=== PATIENT | female | born 1960 | race Caucasian/White ===

== ENCOUNTER → 2016-06-09 | Outpatient (CLI) | payer BC | LOC: MW.MRI 09:13 | PROVIDERS: ATTEND Orthopaedic Surgery | DX: M25.561 Pain in right knee (principal) | CPT/HCPCS: 73721-RT ==

== ENCOUNTER 2016-08-25 07:48 | Inpatient (IN) | payer BC ==
[~2016-08-25 07:48] MED LIST: Acetaminophen 1,000 MG in Premix Bag 1 BAG IV SCH; Famotidine 20 MG/2 ML SDV IVPUSH SCH; Ketorolac 30 MG/ML SDV IVPUSH SCH; Scopolamine 1.5 MG Transdermal Patch TRDERM SCH; oxyCODONE ER 20 MG TAB.ER PO SCH
[2016-08-25] MEDS ORDERED: Tranexamic Acid 4,000 MG in Sodium Chloride 0.9% 100 ML IV SCH (08:00)
[2016-08-25] MEDS ORDERED: Ropivacaine 49.25 ML, Ketorolac 30 MG, EPINEPHrine 0.5 MG, cloNIDine 80 MCG in Sodium C... INJECT SCH (08:00)
[2016-08-25] MEDS ORDERED: Clindamycin Phosphate in D5W 900 MG in Premix Bag 1 BAG IV SCH ×2 (08:00)
[2016-08-25] MEDS: Lactated Ringers 1,000 ML IV SCH (08:56)
[2016-08-25] MEDS ORDERED: Lidocaine 2% 5 ML SDV ONE (09:48)
[2016-08-25] MEDS ORDERED: Propofol 200 MG/20 ML SDV ONE ×3 (09:49→11:05)
[2016-08-25] MEDS ORDERED: fentaNYL 100 MCG/2 ML SDV ONE (09:49)
[2016-08-25] MEDS ORDERED: ePHEDrine 50 MG/ML SDV ONE (09:49)
[2016-08-25] MEDS ORDERED: Ondansetron 4 MG/2 ML SDV ONE (09:49)
[2016-08-25] MEDS ORDERED: Midazolam 1 MG/ML 2 ML SDV ONE (09:49)
--- NOTE | 2016-08-25 10:03 | PCM.PREANE ---
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 Off Xarelto since Thursday. - Review of Systems General: No Symptoms Pulmonary: No Symptoms, Other (sleep apnea (CPAP)) Gastrointestinal: Other (S/p bariatric surgery) Neurological: No Symptoms Other: Reports: Thyroid Problems (hypothyroid - treated) - Physical Assessment NPO Status Date: 08/24/16 NPO Status Time: 23:00 O2 Sat by Pulse Oximetry: 93 Respiratory Rate: 16 Vital Signs: Last Vital Signs Temp 99.1 F 08/25/16 08:15 Pulse 80 08/25/16 08:15 Resp 16 08/25/16 08:15 BP 140/75 08/25/16 08:15 Pulse Ox 93 L 08/25/16 08:15 Height: 5 ft 7 in Weight: 250 lb ASA Class: 3 Mental Status: Alert & Oriented x3 Airway Class: Mallampati = 3 Dentition: Reports: Normal Dentition Thyro-Mental Finger Breadths: 3 (prominent thyroid cartilage) Mouth Opening Finger Breadths: 3 ROM/Head Extension: Full Lungs: Clear to auscultation, Normal respiratory effort Cardiovascular: Regular Rate, Regular Rhythm, No Murmurs - Lab Values: Laboratory Last Values Blood Type A POSITIVE 08/25/16 08:28 Antibody Screen NEGATIVE 08/25/16 08:28 - Allergies Allergies/Adverse Reactions: Allergies Allergy/AdvReac Type Severity Reaction Status Date / Time cephalexin monohydrate Allergy Hives Verified 08/14/16 10:52 [From Keflex] strawberry Allergy Hives Verified 08/14/16 10:52 Sulfa (Sulfonamide Allergy Hives Verified 08/14/16 10:52 Antibiotics) - Blood Blood Available: Yes Product(s) Available: PRBC (T and S) - Anesthesia Plan Free Text/Narrative:: Risk due to potential blood clotting (protein S deficiency). - Acknowledgements Anesthesia Type Planned: Spinal (perhaps general depending on airway) Pt an Appropriate Candidate for the Planned Anesthesia: Yes Alternatives and Risks of Anesthesia Discussed w Pt/Guardian: Yes Pt/Guardian Understands and Agrees with Anesthesia Plan: Yes PreAnesthesia Questionnaire Other HEENT History: wears glasses Cardiovascular History: Reports: Blood Clots/VTE/DVT Other Cardiovascular History: Protein S deficiency, has had DVTx3 Respiratory History: Reports: Sleep Apnea Other Respiratory History: had sleep apnea and used CPAP before gastric bypass, not currently needed Gastrointestinal History: Reports: None Genitourinary History: Reports: None [employer] History: Reports: None Musculoskeletal History: Reports: Arthritis Neurological History: Reports: None Psychiatric History: Reports: None Other Psychiatric History: claustrophobic Endocrine/Metabolic History: Reports: Hypothyroidism, Obesity/BMI 30+ Hematologic History: Reports: Anticoagulation Therapy, Other (See Below) Other Hematologic History: Protein S deficiency Immunologic History: Reports: None Oncologic (Cancer) History: Reports: None Dermatologic History: Reports: None Other Dermatologic History: occasional groin rash - Past Surgical History GI Surgical History: Reports: Bariatric Procedure, Cholecystectomy, Hernia, Abdominal, Other (See Below) Dermatological Surgical History: Reports: Plastic Surgical Reconstruction/Repair - SUBSTANCE USE Smoking Status *Q: Never Smoker Second Hand Smoke Exposure: No Recreational Drug Use History: No - HOME MEDS Home Medications: Home Meds Levothyroxine 125 mcg PO ACBREAKFAST 02/19/15 [History] Clobetasol [Clobetasol 0.05%] 1 applic TOP ASDIRECTED PRN 08/09/15 [History] Iron 28 mg PO DAILY 08/09/15 [History] Multivitamin [Daily Vika] 1 tab PO DAILY 08/09/15 [History] Rivaroxaban [Xarelto] 20 mg PO DAILY 08/09/15 [History] Vit B12/Fa/Pyridoxine HCl/AA15 [Glycotrol] 500 mg PO DAILY 08/09/15 [History] traMADol HCl [Ultram] 1 tab PO BID PRN 08/09/15 [History] LORazepam 1 mg PO BEDTIME 08/14/16 [History] - CURRENT (IN HOUSE) MEDS Current Meds: Current Medications Famotidine (Pepcid) 40 mg IVPUSH ONARRIVE [facility]BARA Last Admin: 08/25/16 09:01 Dose: 40 mg Acetaminophen 1,000 mg/ Premix 100 mls @ 400 mls/hr IV ONARRIVE [facility]BAR[facility] Last Admin: 08/25/16 08:45 Dose: 400 mls/hr Clindamycin Phosphate 900 mg/ (Premix) 50 mls @ 100 mls/hr IV ONCALL [facility] Ropivacaine 49.25 ml/Ketorolac Tromethamine 30 mg/Epinephrine HCl 0.5 mg/ Clonidine HCl 80 mcg/ Sodium Chloride 100 mls @ 50 mls/min INJECT ASDIRECTED [facility] Lactated Ringer's (Ringers, Lactated) 1,000 mls @ 100 mls/hr IV ASDIRECTED [facility] Last Admin: 08/25/16 08:56 Dose: 100 mls/hr Tranexamic Acid 4,000 mg/ (Sodium Chloride) 140 mls @ 600 mls/hr IV ASDIRECTED [facility] Ketorolac Tromethamine (Toradol) 30 mg IVPUSH ONARRIVE [facility] Last Admin: 08/25/16 09:02 Dose: 30 mg Oxycodone HCl (Oxycontin) 20 mg PO ONARRIVE [facility] Last Admin: 08/25/16 08:58 Dose: 20 mg Scopolamine (Transderm-Scop) 1.5 mg TRDERM ONARRIVE [facility] Last Admin: 08/25/16 09:03 Dose: 1.5 mg Discontinued Medications Ephedrine Sulfate (Ephedrine Sulfate) Confirm Administered Dose 50 mg .ROUTE .STK-MED ONE Stop: 08/25/16 09:50 Fentanyl (Sublimaze) Confirm Administered Dose 100 mcg .ROUTE .STK-MED ONE Stop: 08/25/16 09:50 Lidocaine (Xylocaine-Mpf 2%) Confirm Administered Dose 10 ml .ROUTE .STK-MED ONE Stop: 08/25/16 09:49 Midazolam HCl (Versed 1 Mg/Ml) Confirm Administered Dose 2 mg .ROUTE .STK-MED ONE Stop: 08/25/16 09:50 Ondansetron HCl (Zofran) Confirm Administered Dose 4 mg .ROUTE .STK-MED ONE Stop: 08/25/16 09:50 Propofol (Diprivan 20 Ml) Confirm Administered Dose 400 mg .ROUTE .STK-MED ONE Stop: 08/25/16 09:50 Tranexamic Acid (Cyklokapron) Confirm Administered Dose 4,000 mg .ROUTE .STK- MED ONE Stop: 08/25/16 08:49
--- NOTE | 2016-08-25 10:32 | PCM.OPNOTE ---
- General Post-Op/Procedure Note Date of Surgery/Procedure: 08/25/16 Operative Procedure(s): R TKA Post-Op Diagnosis: DJD R knee Anesthesia Technique: Moderate sedation, Spinal Primary Surgeon: Frances Roach [employer] Consultant: Shannon Flores [employer] Plant Consultant: Michelle Raman in mLs: 50 Condition: Good Free Text/Narrative:: tt=50 min #[id number]
[2016-08-25] MEDS ORDERED: Bupivacaine 0.75%/D5W 2 ML Amp ONE (10:42)
[2016-08-25] MEDS ORDERED: fentaNYL 100 MCG/2 ML SDV IVPUSH PRN (11:27)
[2016-08-25] MEDS ORDERED: HYDROmorphone 2 MG/ML Syringe IVPUSH ONE (11:27)
[2016-08-25] MEDS ORDERED: Bisacodyl 10 MG Supp RECTAL PRN (12:19)
[2016-08-25] MEDS ORDERED: Ondansetron 4 MG/2 ML SDV IV PRN (12:19)
[2016-08-25] MEDS ORDERED: Aluminum Hydroxide/Magnesium Hydroxide/Simethicone Susp 30 ML Cup PO PRN (12:19)
--- NOTE | 2016-08-25 12:47 | PCM.POSTAN ---
POST ANESTHESIA ASSESSMENT - MENTAL STATUS Mental Status: alert (Sedate, comfortable without pain since spinal still active but receding), oriented - VITAL SIGNS Pulse Rate: 86 SaO2: 97 (RA) Resp Rate: 10 Blood Pressure: 141/75 - RESPIRATORY Respiratory Status: respiratory rate WNL, airway patent, O2 saturation stable - CARDIOVASCULAR CV Status: pulse rate WNL, blood pressure stable - GASTROINTESTINAL GI Status: no symptoms - PAIN Pain Score: 0 - POST OP HYDRATION Hydration Status: adequate & stable - OBSERVATIONS Free Text/Narrative:: To phase II
[2016-08-25] MEDS: Acetaminophen 1,000 MG in Premix Bag 1 BAG IV SCH ×2 (14:04→20:55)
--- NOTE | 2016-08-25 14:31 | OR ---
SURGEON: Frances Roach MD DATE OF PROCEDURE: 08/25/2016 PREOPERATIVE DIAGNOSIS: Degenerative joint disease, left knee, tricompartmental. POSTOPERATIVE DIAGNOSIS: Degenerative joint disease, left knee, tricompartmental. PROCEDURE: Left total knee arthroplasty using the patient specific instrumentation. STEWARD/STEWARDESS NIGHT: RADHA Meyer and Michelle Raman PA-C ANESTHESIA: Spinal with sedation. ESTIMATED BLOOD LOSS: 50 mL. TOURNIQUET TIME: 50 minutes. COMPLICATIONS: None. DVT PROPHYLAXIS: PAS boot and Brandin hose to the nonoperative leg. IMPLANTS USED: Julio Persona femoral component, size 7 standard (LPS), tibial component size E, 11 mm all-polyethylene articular surface, and 32 mm all-polyethylene patella. INTRAOPERATIVE FINDINGS: Showed tricompartmental degenerative changes with grade 4 chondromalacia in all compartments. No significant synovitis was noted. A 1 g of tranexamic acid was given IV at the start of the case. An additional 1 g of TXA was given IV upon deflation of the tourniquet. We did apply 1 g of TXA topically to the wound as the cement was allowed to harden. BRIEF HISTORY: Merari is a 56-year-old female, who has had complaint of progressive left knee pain. She has previously undergone a right total knee arthroplasty and has done well. Due to her lack of response to conservative treatment on the left, I did recommend surgical intervention. The risks and goals of procedure were discussed with the patient and were documented preoperatively. She agreed to proceed. DESCRIPTION OF PROCEDURE: The patient was properly identified and brought to the operating room. The patient was then transferred from the operating room cart and placed on the operating table in a supine position. Anesthesia was administered by the anesthesia staff. After adequate anesthesia was obtained, a well-padded tourniquet was applied to the surgical lower extremity. The lower extremity was then prepped in standard fashion using ChloraPrep solution. It was then sterilely draped. A time-out was performed to ensure correct site and procedure. Preoperative antibiotics were given. The surgical site had been marked preoperatively. An Esmarch was used to exsanguinate the right lower extremity and the tourniquet was inflated. An incision was made over the anterior aspect of the knee. The subcutaneous tissues were dissected down to the level of the fascia. A medial parapatellar approach to the knee was made. A portion of the infrapatellar fat pad was then excised. The distal femur was then exposed. The femoral patient-specific cutting guide was then placed. Pins were also placed. The distal femoral cutting block was placed and the distal femoral cut was made. Instrumentation was then removed. Both Whitesides' line and the epicondylar axis were then marked with electrocautery. The 4-in-1 cutting block was placed. This was placed in a slightly externally rotated position, which corresponded well with the previously drawn lines. The cutting guide was then pinned into position. An Danilo wing guide was used to check the depth of resection of our anterior condylar cut and it was felt that no notching would occur. The anterior condylar cut was then made followed by the posterior condylar cut. Both the posterior chamfer and anterior chamfer cuts were then made. The cutting block was then removed along with the excess bony remnants. We then turned our attention to the tibia. The anterior cruciate ligament and posterior cruciate ligament were released and a posterior cruciate ligament retractor was placed to allow the tibia to be pulled anteriorly. The tibial patient-specific guide was then placed on the proximal tibia. This fit anatomically. The pins were then placed. The proximal tibia cutting guide was then placed and screwed into position. The proximal tibial resection was then made with care being taken to protect the patellar tendon. The bony resection was then removed. The remainder of the medial and lateral meniscus were then excised. Care was taken to protect the popliteus tendon. The tibia was then sized to the appropriate size. The distal femur was then elevated. The posterior capsule was stripped off the distal femur both medially and laterally. The posterior capsule along with the medial and lateral gutters were then injected with a standard mixture consisting of clonidine, epinephrine, Morphine, Toradol, and Ropivacaine, unless any allergies were found preoperatively. The femoral component was then placed onto the distal femur in a slightly lateral position. This fit the femur well. A box cut was then made without difficulty. This was then removed. The tibial trial along with the polyethylene liner was then placed. The knee came easily into full extension and was stable to varus and valgus stressing both in full extension and flexion. Any additional releases were performed at this time. We then returned our attention to the patella. The patella was everted and towel clamps were used to hold the patella in position. It was resected to a 15 millimeter thickness. It was then sized to the appropriate size. It was prepared in the usual fashion after placing the predetermined size clamps. This was placed in a slightly superior and medial position. The clamp was then removed. The patellar trial button was placed. The knee was taken through a range of motion using the no-touch technique. The patella tracked centrally. A drop lucio was then placed to check alignment. All instruments were then removed from the knee. The tibial sizer was then placed on the tibia. The tibia was prepared in the usual fashion using the reamer and broach. This was then removed. All bony surfaces were copiously irrigated with Pulsavac solution. They were then suctioned dry. Cement was prepared on the back table in the usual manner. Once it was prepared, the bone ends were again suctioned dry. The tibia was cemented into place first. This was malleted into position. Excess cement was then cleared. The femur was then placed in a similar manner. We placed the polyethylene trial into place and the knee was brought into full extension. An axial load was placed while keeping the knee in full extension. The patella button was also cemented into position and the clamp was used to hold this in place as the cement was allowed to cure. After we had adequate curing of the cement, the knee was again taken through a range of motion. The size of the polyethylene was then determined. The polyethylene trial was then removed. The tibial tray was suctioned to make sure there was no remaining soft tissue or cement. Excess cement was cleared from around the edges of the prosthesis as well. The tourniquet was then deflated. We were able to observe for any excess bleeding and none was noted. Electrocautery was used to maintain hemostasis. The retractors were again placed and the predetermined polyethylene was then placed. This was locked into position without difficulty. The knee was again taken through a range of motion with no change from the prior exam. The wound was then copiously irrigated with Pulsavac solution. The fascial layer was closed with Number One Vicryl. The subcutaneous tissues were closed with 2-0 Vicryl. The skin was closed with rama. Xeroform gauze was placed over the wound and a bulky dressing was applied. The patient was then awakened from anesthesia and transferred back to the operating room cart. They were brought to the recovery room in stable condition. All needle and sponge counts were correct. RODRIGO / MODL /[id number] MTDAlexy
[2016-08-25] MEDS: Morphine 4 MG/ML Syringe IVPUSH PRN (14:40)
[2016-08-25] MEDS ORDERED: Promethazine 25 MG/ML SDV IM PRN (15:02)
--- NOTE | 2016-08-25 15:47 | CR ---
EXAMINATION: Right knee HISTORY: TKA COMPARISON: 06/09/2016 TECHNIQUE: 2 views FINDINGS/IMPRESSION: Right total knee hardware is demonstrated in good position and alignment. Opera tive soft tissue changes noted.
[2016-08-25] MEDS ORDERED: diphenhydrAMINE 25 MG Cap PO PRN (16:12)
[2016-08-25] MEDS: oxyCODONE 5 MG Tab PO PRN ×2 (16:38→23:09)
[2016-08-25] MEDS: Clindamycin Phosphate in D5W 900 MG in Premix Bag 1 BAG IV SCH ×2 (17:43)
[2016-08-25] MEDS: Ketorolac 30 MG/ML SDV IVPUSH SCH ×2 (17:43→23:52)
[2016-08-25] MEDS: Ondansetron 4 MG/2 ML SDV IVPUSH PRN (20:39)
[2016-08-25] MEDS: Docusate Sodium 100 MG Cap PO SCH (20:46)
[2016-08-25] MEDS: oxyCODONE ER 20 MG TAB.ER PO SCH (20:46)
[2016-08-25] MEDS: LORazepam 1 MG Tab PO SCH (20:47)
[2016-08-26] MEDS: Lactated Ringers 1,000 ML IV SCH (00:37)
[2016-08-26] MEDS: Clindamycin Phosphate in D5W 900 MG in Premix Bag 1 BAG IV SCH ×2 (02:05)
[2016-08-26] MEDS: oxyCODONE 5 MG Tab PO PRN ×3 (03:24→18:03)
[2016-08-26] MEDS: Acetaminophen 500 MG Tab PO SCH ×4 (03:24→21:14)
[2016-08-26] MEDS: Ketorolac 30 MG/ML SDV IVPUSH SCH (05:15)
[2016-08-26] MEDS: Levothyroxine 125 MCG Tab PO SCH (06:42)
[2016-08-26] MEDS ORDERED: Sodium Chloride 0.9% 10 ML Syringe FLUSH PRN (08:14)
[2016-08-26] MEDS ORDERED: Sodium Chloride 0.9% 2.5 ML Syringe FLUSH PRN (08:14)
--- NOTE | 2016-08-26 08:14 | PCM.SURGPN ---
- General Info Date of Service: 08/26/16 Date of Surgery/Procedure: 08/25/16 Functional Status: Reports: pain controlled - Review of Systems General: Reports: No Symptoms Pulmonary: Reports: no symptoms Cardiovascular: Reports: No Symptoms Gastrointestinal: Reports: Nausea Musculoskeletal: Reports: leg pain Systems Review Comment:: pt up in bed has been OOB for dinner and breakfast this AM some nausea, improving with IM phenergan, no vomiting pain controlled no specific concerns today - Patient Data Vitals - most recent: Last Vital Signs Temp 96.2 F 08/26/16 04:00 Pulse 69 08/26/16 04:00 Resp 17 08/26/16 04:00 BP 114/58 L 08/26/16 04:00 Pulse Ox 93 L 08/26/16 04:00 Weight - most recent: 113.398 kg I&O - last 24 hours: Intake & Output 08/25/16 08/26/16 08/26/16 22:59 06:59 14:59 Intake Total 314 1280 Output Total 550 1250 Balance -236 30 Lab Results last 24 hrs: Laboratory Results - last 24 hr 08/25/16 08/26/16 Range/Units 08:28 04:33 Hgb 11.9 L (12.0-16.0) g/dL Hct 36.6 (36.0-46.0) % Blood Type A POSITIVE Antibody Screen NEGATIVE Med Orders - Current: Current Medications Acetaminophen (Tylenol Extra Strength) 1,000 mg PO Q6H [facility] Last Admin: 08/26/16 03:24 Dose: 1,000 mg Al Hydroxide/Mg Hydroxide (Mag-Al Plus) 30 ml PO Q4H PRN PRN Reason: indigestion Bisacodyl (Dulcolax) 10 mg RECTAL DAILY PRN PRN Reason: Constipation Celecoxib (Celebrex) 200 mg PO BID [facility] Diphenhydramine HCl (Benadryl) 25 mg PO Q4H PRN PRN Reason: ITCHING Docusate Sodium (Colace) 100 mg PO BID [facility] Last Admin: 08/25/16 20:46 Dose: 100 mg Famotidine (Pepcid) 40 mg PO DAILY [facility] Ferrous Sulfate (Slow Fe) 140 mg PO DAILY [facility] Lactated Ringer's (Ringers, Lactated) 1,000 mls @ 100 mls/hr IV ASDIRECTED [facility] Last Admin: 08/26/16 00:37 Dose: 100 mls/hr Ketorolac Tromethamine (Toradol) 30 mg IVPUSH Q6H [facility] Stop: 08/26/16 09:00 Last Admin: 08/26/16 05:15 Dose: 30 mg Levothyroxine Sodium (Levothyroxine) 125 mcg PO ACBREAKFAST [facility] Last Admin: 08/26/16 06:42 Dose: 125 mcg Lorazepam (Ativan) 1 mg PO BEDTIME [facility] Last Admin: 08/25/16 20:47 Dose: 1 mg Morphine Sulfate (Morphine) 1 - 3 mg IVPUSH Q3H PRN PRN Reason: Pain Last Admin: 08/25/16 14:40 Dose: 2 mg Multivitamins/Minerals/Vitamin C (Tab-A-Vika) 1 tab PO DAILY [facility] Ondansetron HCl (Zofran) 4 mg IVPUSH Q8H PRN PRN Reason: NAUSEA Last Admin: 08/25/16 20:39 Dose: 4 mg Oxycodone HCl (Oxycodone) 5 - 10 mg PO Q4H PRN PRN Reason: Pain Last Admin: 08/26/16 03:24 Dose: 10 mg Oxycodone HCl (Oxycontin) 20 mg PO Q12HR [facility] Last Admin: 08/25/16 20:46 Dose: 20 mg Promethazine HCl (Phenergan) 25 mg IM Q6H PRN PRN Reason: Nausea Last Admin: 08/25/16 15:26 Dose: 25 mg Rivaroxaban (Xarelto) 20 mg PO DAILY@0800 [facility] Scopolamine (Transderm-Scop) 1.5 mg TRDERM ONARRIVE [facility] Last Admin: 08/25/16 09:03 Dose: 1.5 mg Discontinued Medications Bupivacaine HCl/Dextrose (Marcaine 0.75% Spinal) Confirm Administered Dose 2 ml .ROUTE .STK-MED ONE Stop: 08/25/16 10:43 Ephedrine Sulfate (Ephedrine Sulfate) Confirm Administered Dose 50 mg .ROUTE .STK-MED ONE Stop: 08/25/16 09:50 Famotidine (Pepcid) 40 mg IVPUSH ONARRIVE [facility] Last Admin: 08/25/16 09:01 Dose: 40 mg Fentanyl (Sublimaze) Confirm Administered Dose 100 mcg .ROUTE .STK-MED ONE Stop: 08/25/16 09:50 Fentanyl (Sublimaze) 50 mcg IVPUSH Q5M PRN PRN Reason: Pain (severe 7-10) Stop: 08/26/16 11:27 Hydromorphone HCl (Dilaudid) 0 mg IVPUSH ONETIME ONE Stop: 08/25/16 11:28 Last Admin: 08/25/16 16:44 Dose: Not Given Acetaminophen 1,000 mg/ Premix 100 mls @ 400 mls/hr IV ONARRIVE [facility] Last Admin: 08/25/16 08:45 Dose: 400 mls/hr Clindamycin Phosphate 900 mg/ (Premix) 50 mls @ 100 mls/hr IV ONCALL [facility] Last Admin: 08/25/16 09:58 Dose: 100 mls/hr Ropivacaine 49.25 ml/Ketorolac Tromethamine 30 mg/Epinephrine HCl 0.5 mg/ Clonidine HCl 80 mcg/ Sodium Chloride 100 mls @ 50 mls/min INJECT ASDIRECTED [facility] Tranexamic Acid 4,000 mg/ (Sodium Chloride) 140 mls @ 600 mls/hr IV ASDIRECTED [facility] Acetaminophen 1,000 mg/ Premix 100 mls @ 400 mls/hr IV Q6H [facility] Stop: 08/25/16 21:14 Last Admin: 08/25/16 20:55 Dose: 400 mls/hr Clindamycin Phosphate 900 mg/ (Premix) 50 mls @ 100 mls/hr IV Q8H [facility] Stop: 08/26/16 02:29 Last Admin: 08/26/16 02:05 Dose: 100 mls/hr Ketorolac Tromethamine (Toradol) 30 mg IVPUSH ONARRIVE [facility] Last Admin: 08/25/16 09:02 Dose: 30 mg Lidocaine (Xylocaine-Mpf 2%) Confirm Administered Dose 10 ml .ROUTE .STK-MED ONE Stop: 08/25/16 09:49 Midazolam HCl (Versed 1 Mg/Ml) Confirm Administered Dose 2 mg .ROUTE .STK-MED ONE Stop: 08/25/16 09:50 Ondansetron HCl (Zofran) Confirm Administered Dose 4 mg .ROUTE .STK-MED ONE Stop: 08/25/16 09:50 Ondansetron HCl (Zofran) 4 mg IV Q6HR PRN PRN Reason: NAUSEA/VOMITING Oxycodone HCl (Oxycontin) 20 mg PO ONARRIVE [facility] Last Admin: 08/25/16 08:58 Dose: 20 mg Propofol (Diprivan 20 Ml) Confirm Administered Dose 400 mg .ROUTE .STK-MED ONE Stop: 08/25/16 09:50 Propofol (Diprivan 20 Ml) Confirm Administered Dose 200 mg .ROUTE .STK-MED ONE Stop: 08/25/16 10:57 Propofol (Diprivan 20 Ml) Confirm Administered Dose 200 mg .ROUTE .STK-MED ONE Stop: 08/25/16 11:06 Tranexamic Acid (Cyklokapron) Confirm Administered Dose 4,000 mg .ROUTE .STK- MED ONE Stop: 08/25/16 08:49 - Exam Wound/Incisions: other (dressing has slid distally, proximal rama exposed. ) General: alert, oriented Cardiovascular: Regular Rate, Regular Rhythm Extremities: no edema, normal pulses, no calf tenderness, other (RLE - at/ehl/ gastroc 5/5, dp 2+, sensation intact distally) Physical Findings Comment:: vss, afeb UO 2370mL hgb 11.9 - Problem List Review Problem List Initiated/Reviewed/Updated: Yes - My Orders Last 24 Hours: Active Orders 24 hr Category Date Time Status Patient Status [ADT] Routine ADT 08/25/16 08:48 Active Activity as Tolerated [RC] .Routine Care 08/25/16 12:19 Active Dressing Change [Wound Care] [RC] ASDIRECTED Care 08/25/16 12:19 Active Insert Urinary Catheter [OM.PC] Routine Care 08/25/16 08:00 Ordered Intake and Output [RC] Q12H Care 08/25/16 12:19 Active Neurovascular Check [RC] Q2HR Care 08/25/16 12:19 Active Notify Provider Vital Signs [RC] ASDIRECTED Care 08/25/16 12:19 Active RT Incentive Spirometry [RC] ASDIRECTED Care 08/25/16 12:19 Active Vital Signs [RC] Q4H Care 08/25/16 12:19 Active PT Evaluation and Treatment [CONS] Routine Cons 08/25/16 12:19 Active HEMOGLOBIN/HEMATOCRIT,HH [HEME] DAILY Lab 08/27/16 06:00 Ordered HEMOGLOBIN/HEMATOCRIT,HH [HEME] DAILY Lab 08/28/16 06:00 Ordered Acetaminophen [Tylenol Extra Strength] Med 08/26/16 03:00 Active 1,000 mg PO Q6H Alum Hydrox/Mag Hydrox/Simeth [Mag-Al Plus] Med 08/25/16 12:19 Active 30 ml PO Q4H PRN Bisacodyl [Dulcolax] Med 08/25/16 12:19 Active 10 mg RECTAL DAILY PRN Celecoxib [CeleBREX] Med 08/26/16 09:00 Active 200 mg PO BID Docusate Sodium [Colace] Med 08/25/16 21:00 Active 100 mg PO BID Famotidine [Pepcid] Med 08/26/16 09:00 Active 40 mg PO DAILY Ferrous Sulfate [Slow Fe] Med 08/26/16 09:00 Active 140 mg PO DAILY Ketorolac [Toradol] Med 08/25/16 18:00 Active 30 mg IVPUSH Q6H LORazepam [Ativan] Med 08/25/16 21:00 Active 1 mg PO BEDTIME Levothyroxine Med 08/26/16 07:30 Active 125 mcg PO ACBREAKFAST Morphine Med 08/25/16 12:19 Active 1 - 3 mg IVPUSH Q3H PRN Multivitamins [Tab-A-Vika] Med 08/26/16 09:00 Active 1 tab PO DAILY Ondansetron [Zofran] Med 08/25/16 17:25 Active 4 mg IVPUSH Q8H PRN Promethazine [Phenergan] Med 08/25/16 15:02 Active 25 mg IM Q6H PRN Rivaroxaban [Xarelto] Med 08/26/16 08:00 Active 20 mg PO DAILY@0800 diphenhydrAMINE [Benadryl] Med 08/25/16 16:12 Active 25 mg PO Q4H PRN oxyCODONE Med 08/25/16 12:19 Active 5 - 10 mg PO Q4H PRN oxyCODONE ER [OxyCONTIN] Med 08/25/16 21:00 Active 20 mg PO Q12HR Ice Therapy [OM.PC] Routine Oth 08/25/16 12:19 Ordered Medication Orders Acetaminophen (Tylenol Extra Strength) 1,000 mg PO Q6H [facility] Last Admin: 08/26/16 03:24 Dose: 1,000 mg Al Hydroxide/Mg Hydroxide (Mag-Al Plus) 30 ml PO Q4H PRN PRN Reason: indigestion Bisacodyl (Dulcolax) 10 mg RECTAL DAILY PRN PRN Reason: Constipation Celecoxib (Celebrex) 200 mg PO BID [facility] Diphenhydramine HCl (Benadryl) 25 mg PO Q4H PRN PRN Reason: ITCHING Docusate Sodium (Colace) 100 mg PO BID [facility] Last Admin: 08/25/16 20:46 Dose: 100 mg Famotidine (Pepcid) 40 mg PO DAILY [facility] Ferrous Sulfate (Slow Fe) 140 mg PO DAILY [facility] Lactated Ringer's (Ringers, Lactated) 1,000 mls @ 100 mls/hr IV ASDIRECTED [facility] Last Admin: 08/26/16 00:37 Dose: 100 mls/hr Infusion: 08/25/16 18:56 Dose: 100 mls/hr Admin: 08/25/16 08:56 Dose: 100 mls/hr Ketorolac Tromethamine (Toradol) 30 mg IVPUSH Q6H [facility] Stop: 08/26/16 09:00 Last Admin: 08/26/16 05:15 Dose: 30 mg Admin: 08/25/16 23:52 Dose: 30 mg Admin: 08/25/16 17:43 Dose: 30 mg Levothyroxine Sodium (Levothyroxine) 125 mcg PO ACBREAKFAST [facility] Last Admin: 08/26/16 06:42 Dose: 125 mcg Lorazepam (Ativan) 1 mg PO BEDTIME [facility] Last Admin: 08/25/16 20:47 Dose: 1 mg Morphine Sulfate (Morphine) 1 - 3 mg IVPUSH Q3H PRN PRN Reason: Pain Last Admin: 08/25/16 14:40 Dose: 2 mg Multivitamins/Minerals/Vitamin C (Tab-A-Vika) 1 tab PO DAILY [facility] Ondansetron HCl (Zofran) 4 mg IVPUSH Q8H PRN PRN Reason: NAUSEA Last Admin: 08/25/16 20:39 Dose: 4 mg Oxycodone HCl (Oxycodone) 5 - 10 mg PO Q4H PRN PRN Reason: Pain Last Admin: 08/26/16 03:24 Dose: 10 mg Admin: 08/25/16 23:09 Dose: 10 mg Admin: 08/25/16 16:38 Dose: 10 mg Oxycodone HCl (Oxycontin) 20 mg PO Q12HR [facility] Last Admin: 08/25/16 20:46 Dose: 20 mg Promethazine HCl (Phenergan) 25 mg IM Q6H PRN PRN Reason: Nausea Last Admin: 08/25/16 15:26 Dose: 25 mg Rivaroxaban (Xarelto) 20 mg PO DAILY@0800 [facility] Scopolamine (Transderm-Scop) 1.5 mg TRDERM ONARRIVE [facility] Last Admin: 08/25/16 09:03 Dose: 1.5 mg - Assessment Assessment (Free Text/Narrative):: POD#1 R TKA acute posthemorrhagic anemia - Plan Plan (Free Text/Narrative):: DEMARCUS IVF, booth continue pain management dressing changed to aquacel dressing PT today resume home Xarelto as DVT prophylaxis pt will require FWW until improved mobility/stability, increased RLE strength if nausea improves today, will change IM phenergan to PO
[2016-08-26] MEDS: Multivitamin Tab PO SCH (08:33)
[2016-08-26] MEDS: Rivaroxaban 10 MG Tab PO SCH (08:34)
[2016-08-26] MEDS: Celecoxib 100 MG Cap PO SCH ×2 (08:34→21:14)
[2016-08-26] MEDS: Famotidine 20 MG Tab PO SCH (08:34)
[2016-08-26] MEDS: Docusate Sodium 100 MG Cap PO SCH ×2 (08:34→21:15)
[2016-08-26] MEDS: oxyCODONE ER 20 MG TAB.ER PO SCH ×2 (08:35→21:14)
--- NOTE | 2016-08-26 08:56 | PCM48HPAN ---
Post Anesthesia Note - EVALUATION WITHIN 48HRS OF ANESTHETIC Vital Signs in Normal Range: Yes Patient Participated in Evaluation: Yes Respiratory Function Stable: Yes Airway Patent: Yes Cardiovascular Function Stable: Yes Hydration Status Stable: Yes Pain Control Satisfactory: Yes Nausea and Vomiting Control Satisfactory: Yes (nauseated this morning after breakfast) Mental Status Recovered: Yes - COMMENTS/OBSERVATIONS Free Text/Narrative:: Discussed taking PO pudding, yogurt, or crackers before pain med intake. she is better post procedure than a year ago.
[2016-08-26] MEDS: Ferrous Sulfate 140 MG Tab PO SCH (08:57)
[2016-08-26] MEDS ORDERED: [UNRECOGNIZED DRUG - MIXTURE] PO SCH (09:00)
[2016-08-26] MEDS: Ondansetron 4 MG/2 ML SDV IVPUSH PRN (12:03)
[2016-08-26] MEDS: Morphine 4 MG/ML Syringe IVPUSH PRN (14:54)
[2016-08-26] MEDS ORDERED: Promethazine 25 MG Tab PO PRN (16:01)
--- NOTE | 2016-08-26 18:02 | PCM.SN ---
- Free Text/Narrative Note: Patient seen and examined. Sitting up in chair eating supper. Pain controlled with med. Still some nausea, relieved with medication. Reviewed past TKA medications--no change from her current meds. Will continue to observe nausea. Progressing with PT. Hgb stable. Plan to discharge tomorrow if she is doing well.
[2016-08-26] MEDS: LORazepam 1 MG Tab PO SCH (21:15)
[2016-08-27] MEDS: Acetaminophen 500 MG Tab PO SCH ×3 (03:27→14:22)
[2016-08-27] MEDS: Ondansetron 4 MG/2 ML SDV IVPUSH PRN (03:28)
[2016-08-27] MEDS: Morphine 4 MG/ML Syringe IVPUSH PRN (03:54)
[2016-08-27] MEDS: Levothyroxine 125 MCG Tab PO SCH (06:44)
[2016-08-27] MEDS: Multivitamin Tab PO SCH (08:06)
[2016-08-27] MEDS: Famotidine 20 MG Tab PO SCH (08:06)
[2016-08-27] MEDS: Celecoxib 100 MG Cap PO SCH (08:06)
[2016-08-27] MEDS: Docusate Sodium 100 MG Cap PO SCH (08:06)
[2016-08-27] MEDS: oxyCODONE ER 20 MG TAB.ER PO SCH (08:07)
[2016-08-27] MEDS: Rivaroxaban 10 MG Tab PO SCH (08:07)
[2016-08-27] MEDS: Ferrous Sulfate 140 MG Tab PO SCH (08:07)
--- NOTE | 2016-08-27 08:34 | PCM.SURGPN ---
<Shannon Flores R - Last Filed: 08/27/16 08:31> - General Info Date of Service: 08/27/16 Date of Surgery/Procedure: 08/25/16 POD#: 2 Functional Status: Reports: pain controlled - Review of Systems Pulmonary: Reports: no symptoms Cardiovascular: Reports: No Symptoms Gastrointestinal: Reports: Nausea Musculoskeletal: Reports: leg pain Systems Review Comment:: pt resting comfortably in bed elected to skip breakfast this AM d/t nausea nausea relieved with anti-emetics pain controlled pt unable to recall if nausea improves with Solen 10/325 vs oxycodone, but would like to keep with current oxycodone schedule and use anti-emetics as needed able to ambulate with PT - Patient Data Vitals - most recent: Last Vital Signs Temp 97.7 F 08/27/16 08:00 Pulse 94 08/27/16 08:00 Resp 22 H 08/27/16 08:00 BP 148/85 H 08/27/16 08:00 Pulse Ox 91 L 08/27/16 04:00 Weight - most recent: 113.398 kg I&O - last 24 hours: Intake & Output 08/26/16 08/27/16 08/27/16 22:59 06:59 14:59 Intake Total 1920 625 Output Total 750 1025 Balance 1170 -400 Lab Results last 24 hrs: Laboratory Results - last 24 hr 08/27/16 Range/Units 06:05 Hgb 11.8 L (12.0-16.0) g/dL Hct 35.9 L (36.0-46.0) % Med Orders - Current: Current Medications Acetaminophen (Tylenol Extra Strength) 1,000 mg PO Q6H [facility] Last Admin: 08/27/16 08:06 Dose: 1,000 mg Al Hydroxide/Mg Hydroxide (Mag-Al Plus) 30 ml PO Q4H PRN PRN Reason: indigestion Bisacodyl (Dulcolax) 10 mg RECTAL DAILY PRN PRN Reason: Constipation Celecoxib (Celebrex) 200 mg PO BID [facility] Last Admin: 08/27/16 08:06 Dose: 200 mg Diphenhydramine HCl (Benadryl) 25 mg PO Q4H PRN PRN Reason: ITCHING Docusate Sodium (Colace) 100 mg PO BID [facility] Last Admin: 08/27/16 08:06 Dose: 100 mg Famotidine (Pepcid) 40 mg PO DAILY [facility] Last Admin: 08/27/16 08:06 Dose: 40 mg Ferrous Sulfate (Slow Fe) 140 mg PO DAILY [facility] Last Admin: 08/27/16 08:07 Dose: 140 mg Lactated Ringer's (Ringers, Lactated) 1,000 mls @ 100 mls/hr IV ASDIRECTED [facility] Last Admin: 08/26/16 00:37 Dose: 100 mls/hr Levothyroxine Sodium (Levothyroxine) 125 mcg PO ACBREAKFAST [facility] Last Admin: 08/27/16 06:44 Dose: 125 mcg Lorazepam (Ativan) 1 mg PO BEDTIME [facility] Last Admin: 08/26/16 21:15 Dose: 1 mg Morphine Sulfate (Morphine) 1 - 3 mg IVPUSH Q3H PRN PRN Reason: Pain Last Admin: 08/27/16 03:54 Dose: 2 mg Multivitamins/Minerals/Vitamin C (Tab-A-Vika) 1 tab PO DAILY [facility] Last Admin: 08/27/16 08:06 Dose: 1 tab Ondansetron HCl (Zofran) 4 mg IVPUSH Q8H PRN PRN Reason: NAUSEA Last Admin: 08/27/16 03:28 Dose: 4 mg Oxycodone HCl (Oxycodone) 5 - 10 mg PO Q4H PRN PRN Reason: Pain Last Admin: 08/26/16 18:03 Dose: 10 mg Oxycodone HCl (Oxycontin) 20 mg PO Q12HR [facility] Last Admin: 08/27/16 08:07 Dose: 20 mg Promethazine HCl (Phenergan) 25 mg PO Q6H PRN PRN Reason: Nausea/Vomiting Rivaroxaban (Xarelto) 20 mg PO DAILY@0800 [facility] Last Admin: 08/27/16 08:07 Dose: 20 mg Scopolamine (Transderm-Scop) 1.5 mg TRDERM ONARRIVE [facility] Last Admin: 08/25/16 09:03 Dose: 1.5 mg Sodium Chloride (Saline Flush) 10 ml FLUSH ASDIRECTED PRN PRN Reason: Keep Vein Open Sodium Chloride (Saline Flush) 2.5 ml FLUSH ASDIRECTED PRN PRN Reason: Keep Vein Open Discontinued Medications Bupivacaine HCl/Dextrose (Marcaine 0.75% Spinal) Confirm Administered Dose 2 ml .ROUTE .STK-MED ONE Stop: 08/25/16 10:43 Ephedrine Sulfate (Ephedrine Sulfate) Confirm Administered Dose 50 mg .ROUTE .STK-MED ONE Stop: 08/25/16 09:50 Famotidine (Pepcid) 40 mg IVPUSH ONARRIVE [facility] Last Admin: 08/25/16 09:01 Dose: 40 mg Fentanyl (Sublimaze) Confirm Administered Dose 100 mcg .ROUTE .STK-MED ONE Stop: 08/25/16 09:50 Fentanyl (Sublimaze) 50 mcg IVPUSH Q5M PRN PRN Reason: Pain (severe 7-10) Stop: 08/26/16 11:27 Hydromorphone HCl (Dilaudid) 0 mg IVPUSH ONETIME ONE Stop: 08/25/16 11:28 Last Admin: 08/25/16 16:44 Dose: Not Given Acetaminophen 1,000 mg/ Premix 100 mls @ 400 mls/hr IV ONARRIVE [facility] Last Admin: 08/25/16 08:45 Dose: 400 mls/hr Clindamycin Phosphate 900 mg/ (Premix) 50 mls @ 100 mls/hr IV ONCALL [facility] Last Admin: 08/25/16 09:58 Dose: 100 mls/hr Ropivacaine 49.25 ml/Ketorolac Tromethamine 30 mg/Epinephrine HCl 0.5 mg/ Clonidine HCl 80 mcg/ Sodium Chloride 100 mls @ 50 mls/min INJECT ASDIRECTED [facility] Tranexamic Acid 4,000 mg/ (Sodium Chloride) 140 mls @ 600 mls/hr IV ASDIRECTED [facility] Acetaminophen 1,000 mg/ Premix 100 mls @ 400 mls/hr IV Q6H [facility] Stop: 08/25/16 21:14 Last Admin: 08/25/16 20:55 Dose: 400 mls/hr Clindamycin Phosphate 900 mg/ (Premix) 50 mls @ 100 mls/hr IV Q8H [facility] Stop: 08/26/16 02:29 Last Admin: 08/26/16 02:05 Dose: 100 mls/hr Ketorolac Tromethamine (Toradol) 30 mg IVPUSH ONARRIVE [facility] Last Admin: 08/25/16 09:02 Dose: 30 mg Ketorolac Tromethamine (Toradol) 30 mg IVPUSH Q6H [facility] Stop: 08/26/16 09:00 Last Admin: 08/26/16 05:15 Dose: 30 mg Lidocaine (Xylocaine-Mpf 2%) Confirm Administered Dose 10 ml .ROUTE .STK-MED ONE Stop: 08/25/16 09:49 Midazolam HCl (Versed 1 Mg/Ml) Confirm Administered Dose 2 mg .ROUTE .STK-MED ONE Stop: 08/25/16 09:50 Ondansetron HCl (Zofran) Confirm Administered Dose 4 mg .ROUTE .STK-MED ONE Stop: 08/25/16 09:50 Ondansetron HCl (Zofran) 4 mg IV Q6HR PRN PRN Reason: NAUSEA/VOMITING Oxycodone HCl (Oxycontin) 20 mg PO ONARRIVE [facility] Last Admin: 08/25/16 08:58 Dose: 20 mg Promethazine HCl (Phenergan) 25 mg IM Q6H PRN PRN Reason: Nausea Last Admin: 08/25/16 15:26 Dose: 25 mg Propofol (Diprivan 20 Ml) Confirm Administered Dose 400 mg .ROUTE .STK-MED ONE Stop: 08/25/16 09:50 Propofol (Diprivan 20 Ml) Confirm Administered Dose 200 mg .ROUTE .STK-MED ONE Stop: 08/25/16 10:57 Propofol (Diprivan 20 Ml) Confirm Administered Dose 200 mg .ROUTE .STK-MED ONE Stop: 08/25/16 11:06 Tranexamic Acid (Cyklokapron) Confirm Administered Dose 4,000 mg .ROUTE .STK- MED ONE Stop: 08/25/16 08:49 - Exam Wound/Incisions: dressing dry and intact General: alert, oriented Cardiovascular: Regular Rate, Regular Rhythm Extremities: no edema, normal pulses, no calf tenderness, other (RLE - at/ehl/ gastroc 5/5, dp 2+, sensation intact distally) Physical Findings Comment:: vss, afeb hgb 11.8 - Problem List Review Problem List Initiated/Reviewed/Updated: Yes - My Orders Last 24 Hours: Active Orders 24 hr Category Date Time Status Urinary Catheter Removal [RC] Per Unit Routine Care 08/26/16 08:14 Active HEMOGLOBIN/HEMATOCRIT,HH [HEME] DAILY Lab 08/28/16 06:00 Ordered Celecoxib [CeleBREX] Med 08/26/16 09:00 Active 200 mg PO BID Famotidine [Pepcid] Med 08/26/16 09:00 Active 40 mg PO DAILY Ferrous Sulfate [Slow Fe] Med 08/26/16 09:00 Active 140 mg PO DAILY Multivitamins [Tab-A-Vika] Med 08/26/16 09:00 Active 1 tab PO DAILY Promethazine [Phenergan] Med 08/26/16 16:01 Active 25 mg PO Q6H PRN Rivaroxaban [Xarelto] Med 08/26/16 08:00 Active 20 mg PO DAILY@0800 Sodium Chloride 0.9% [Saline Flush] Med 08/26/16 08:14 Active 10 ml FLUSH ASDIRECTED PRN Sodium Chloride 0.9% [Saline Flush] Med 08/26/16 08:14 Active 2.5 ml FLUSH ASDIRECTED PRN Convert IV to Saline Lock [OM.PC] Routine Oth 08/26/16 08:14 Ordered Medication Orders Acetaminophen (Tylenol Extra Strength) 1,000 mg PO Q6H [facility] Last Admin: 08/27/16 08:06 Dose: 1,000 mg Admin: 08/27/16 03:27 Dose: 1,000 mg Admin: 08/26/16 21:14 Dose: 1,000 mg Admin: 08/26/16 14:14 Dose: 1,000 mg Admin: 08/26/16 08:34 Dose: 1,000 mg Admin: 08/26/16 03:24 Dose: 1,000 mg Al Hydroxide/Mg Hydroxide (Mag-Al Plus) 30 ml PO Q4H PRN PRN Reason: indigestion Bisacodyl (Dulcolax) 10 mg RECTAL DAILY PRN PRN Reason: Constipation Celecoxib (Celebrex) 200 mg PO BID [facility] Last Admin: 08/27/16 08:06 Dose: 200 mg Admin: 08/26/16 21:14 Dose: 200 mg Admin: 08/26/16 08:34 Dose: 200 mg Diphenhydramine HCl (Benadryl) 25 mg PO Q4H PRN PRN Reason: ITCHING Docusate Sodium (Colace) 100 mg PO BID [facility] Last Admin: 08/27/16 08:06 Dose: 100 mg Admin: 08/26/16 21:15 Dose: 100 mg Admin: 08/26/16 08:34 Dose: 100 mg Admin: 08/25/16 20:46 Dose: 100 mg Famotidine (Pepcid) 40 mg PO DAILY [facility] Last Admin: 08/27/16 08:06 Dose: 40 mg Admin: 08/26/16 08:34 Dose: 40 mg Ferrous Sulfate (Slow Fe) 140 mg PO DAILY [facility] Last Admin: 08/27/16 08:07 Dose: 140 mg Admin: 08/26/16 08:57 Dose: 140 mg Lactated Ringer's (Ringers, Lactated) 1,000 mls @ 100 mls/hr IV ASDIRECTED [facility] Last Admin: 08/26/16 00:37 Dose: 100 mls/hr Infusion: 08/25/16 18:56 Dose: 100 mls/hr Admin: 08/25/16 08:56 Dose: 100 mls/hr Levothyroxine Sodium (Levothyroxine) 125 mcg PO ACBREAKFAST [facility] Last Admin: 08/27/16 06:44 Dose: 125 mcg Admin: 08/26/16 06:42 Dose: 125 mcg Lorazepam (Ativan) 1 mg PO BEDTIME [facility] Last Admin: 08/26/16 21:15 Dose: 1 mg Admin: 08/25/16 20:47 Dose: 1 mg Morphine Sulfate (Morphine) 1 - 3 mg IVPUSH Q3H PRN PRN Reason: Pain Last Admin: 08/27/16 03:54 Dose: 2 mg Admin: 08/26/16 14:54 Dose: 3 mg Admin: 08/25/16 14:40 Dose: 2 mg Multivitamins/Minerals/Vitamin C (Tab-A-Vika) 1 tab PO DAILY [facility] Last Admin: 08/27/16 08:06 Dose: 1 tab Admin: 08/26/16 08:33 Dose: 1 tab Ondansetron HCl (Zofran) 4 mg IVPUSH Q8H PRN PRN Reason: NAUSEA Last Admin: 08/27/16 03:28 Dose: 4 mg Admin: 08/26/16 12:03 Dose: 4 mg Admin: 08/25/16 20:39 Dose: 4 mg Oxycodone HCl (Oxycodone) 5 - 10 mg PO Q4H PRN PRN Reason: Pain Last Admin: 08/26/16 18:03 Dose: 10 mg Admin: 08/26/16 12:03 Dose: 10 mg Admin: 08/26/16 03:24 Dose: 10 mg Admin: 08/25/16 23:09 Dose: 10 mg Admin: 08/25/16 16:38 Dose: 10 mg Oxycodone HCl (Oxycontin) 20 mg PO Q12HR [facility] Last Admin: 08/27/16 08:07 Dose: 20 mg Admin: 08/26/16 21:14 Dose: 20 mg Admin: 08/26/16 08:35 Dose: 20 mg Admin: 08/25/16 20:46 Dose: 20 mg Promethazine HCl (Phenergan) 25 mg PO Q6H PRN PRN Reason: Nausea/Vomiting Rivaroxaban (Xarelto) 20 mg PO DAILY@0800 [facility] Last Admin: 08/27/16 08:07 Dose: 20 mg Admin: 08/26/16 08:34 Dose: 20 mg Scopolamine (Transderm-Scop) 1.5 mg TRDERM ONARRIVE [facility] Last Admin: 08/25/16 09:03 Dose: 1.5 mg Sodium Chloride (Saline Flush) 10 ml FLUSH ASDIRECTED PRN PRN Reason: Keep Vein Open Sodium Chloride (Saline Flush) 2.5 ml FLUSH ASDIRECTED PRN PRN Reason: Keep Vein Open - Assessment Assessment (Free Text/Narrative):: POD#2 R TKA acute posthemorrhagic anemia - Plan Plan (Free Text/Narrative):: continue pain/nausea management dc phenergan, use po zofran continue PT if pt does well with PT, will d/ch to home will need rx for zofran from provider prior to d/ch to home <Frances Roach R - Last Filed: 08/27/16 09:23> - Patient Data Vitals - most recent: Last Vital Signs Temp 97.7 F 08/27/16 08:00 Pulse 94 08/27/16 08:00 Resp 22 H 08/27/16 08:00 BP 148/85 H 08/27/16 08:00 Pulse Ox 91 L 08/27/16 04:00 I&O - last 24 hours: Intake & Output 08/26/16 08/27/16 08/27/16 22:59 06:59 14:59 Intake Total 1920 625 Output Total 750 1025 Balance 1170 -400 Lab Results last 24 hrs: Laboratory Results - last 24 hr 08/27/16 Range/Units 06:05 Hgb 11.8 L (12.0-16.0) g/dL Hct 35.9 L (36.0-46.0) % Med Orders - Current: Current Medications Acetaminophen (Tylenol Extra Strength) 1,000 mg PO Q6H [facility] Last Admin: 08/27/16 08:06 Dose: 1,000 mg Al Hydroxide/Mg Hydroxide (Mag-Al Plus) 30 ml PO Q4H PRN PRN Reason: indigestion Bisacodyl (Dulcolax) 10 mg RECTAL DAILY PRN PRN Reason: Constipation Celecoxib (Celebrex) 200 mg PO BID [facility] Last Admin: 08/27/16 08:06 Dose: 200 mg Diphenhydramine HCl (Benadryl) 25 mg PO Q4H PRN PRN Reason: ITCHING Docusate Sodium (Colace) 100 mg PO BID [facility] Last Admin: 08/27/16 08:06 Dose: 100 mg Famotidine (Pepcid) 40 mg PO DAILY [facility] Last Admin: 08/27/16 08:06 Dose: 40 mg Ferrous Sulfate (Slow Fe) 140 mg PO DAILY [facility] Last Admin: 08/27/16 08:07 Dose: 140 mg Lactated Ringer's (Ringers, Lactated) 1,000 mls @ 100 mls/hr IV ASDIRECTED [facility] Last Admin: 08/26/16 00:37 Dose: 100 mls/hr Levothyroxine Sodium (Levothyroxine) 125 mcg PO ACBREAKFAST [facility] Last Admin: 08/27/16 06:44 Dose: 125 mcg Lorazepam (Ativan) 1 mg PO BEDTIME [facility] Last Admin: 08/26/16 21:15 Dose: 1 mg Morphine Sulfate (Morphine) 1 - 3 mg IVPUSH Q3H PRN PRN Reason: Pain Last Admin: 08/27/16 03:54 Dose: 2 mg Multivitamins/Minerals/Vitamin C (Tab-A-Vkia) 1 tab PO DAILY [facility] Last Admin: 08/27/16 08:06 Dose: 1 tab Ondansetron HCl (Zofran) 4 mg IVPUSH Q8H PRN PRN Reason: NAUSEA Last Admin: 08/27/16 03:28 Dose: 4 mg Oxycodone HCl (Oxycodone) 5 - 10 mg PO Q4H PRN PRN Reason: Pain Last Admin: 08/26/16 18:03 Dose: 10 mg Oxycodone HCl (Oxycontin) 20 mg PO Q12HR [facility] Last Admin: 08/27/16 08:07 Dose: 20 mg Promethazine HCl (Phenergan) 25 mg PO Q6H PRN PRN Reason: Nausea/Vomiting Rivaroxaban (Xarelto) 20 mg PO DAILY@0800 [facility] Last Admin: 08/27/16 08:07 Dose: 20 mg Scopolamine (Transderm-Scop) 1.5 mg TRDERM ONARRIVE [facility] Last Admin: 08/25/16 09:03 Dose: 1.5 mg Sodium Chloride (Saline Flush) 10 ml FLUSH ASDIRECTED PRN PRN Reason: Keep Vein Open Sodium Chloride (Saline Flush) 2.5 ml FLUSH ASDIRECTED PRN PRN Reason: Keep Vein Open Discontinued Medications Bupivacaine HCl/Dextrose (Marcaine 0.75% Spinal) Confirm Administered Dose 2 ml .ROUTE .STK-MED ONE Stop: 08/25/16 10:43 Ephedrine Sulfate (Ephedrine Sulfate) Confirm Administered Dose 50 mg .ROUTE .STK-MED ONE Stop: 08/25/16 09:50 Famotidine (Pepcid) 40 mg IVPUSH ONARRIVE [facility] Last Admin: 08/25/16 09:01 Dose: 40 mg Fentanyl (Sublimaze) Confirm Administered Dose 100 mcg .ROUTE .STK-MED ONE Stop: 08/25/16 09:50 Fentanyl (Sublimaze) 50 mcg IVPUSH Q5M PRN PRN Reason: Pain (severe 7-10) Stop: 08/26/16 11:27 Hydromorphone HCl (Dilaudid) 0 mg IVPUSH ONETIME ONE Stop: 08/25/16 11:28 Last Admin: 08/25/16 16:44 Dose: Not Given Acetaminophen 1,000 mg/ Premix 100 mls @ 400 mls/hr IV ONARRIVE [facility] Last Admin: 08/25/16 08:45 Dose: 400 mls/hr Clindamycin Phosphate 900 mg/ (Premix) 50 mls @ 100 mls/hr IV ONCALL [facility] Last Admin: 08/25/16 09:58 Dose: 100 mls/hr Ropivacaine 49.25 ml/Ketorolac Tromethamine 30 mg/Epinephrine HCl 0.5 mg/ Clonidine HCl 80 mcg/ Sodium Chloride 100 mls @ 50 mls/min INJECT ASDIRECTED [facility] Tranexamic Acid 4,000 mg/ (Sodium Chloride) 140 mls @ 600 mls/hr IV ASDIRECTED [facility] Acetaminophen 1,000 mg/ Premix 100 mls @ 400 mls/hr IV Q6H [facility] Stop: 08/25/16 21:14 Last Admin: 08/25/16 20:55 Dose: 400 mls/hr Clindamycin Phosphate 900 mg/ (Premix) 50 mls @ 100 mls/hr IV Q8H [facility] Stop: 08/26/16 02:29 Last Admin: 08/26/16 02:05 Dose: 100 mls/hr Ketorolac Tromethamine (Toradol) 30 mg IVPUSH ONARRIVE [facility] Last Admin: 08/25/16 09:02 Dose: 30 mg Ketorolac Tromethamine (Toradol) 30 mg IVPUSH Q6H [facility] Stop: 08/26/16 09:00 Last Admin: 08/26/16 05:15 Dose: 30 mg Lidocaine (Xylocaine-Mpf 2%) Confirm Administered Dose 10 ml .ROUTE .STK-MED ONE Stop: 08/25/16 09:49 Midazolam HCl (Versed 1 Mg/Ml) Confirm Administered Dose 2 mg .ROUTE .STK-MED ONE Stop: 08/25/16 09:50 Ondansetron HCl (Zofran) Confirm Administered Dose 4 mg .ROUTE .STK-MED ONE Stop: 08/25/16 09:50 Ondansetron HCl (Zofran) 4 mg IV Q6HR PRN PRN Reason: NAUSEA/VOMITING Oxycodone HCl (Oxycontin) 20 mg PO ONARRIVE [facility] Last Admin: 08/25/16 08:58 Dose: 20 mg Promethazine HCl (Phenergan) 25 mg IM Q6H PRN PRN Reason: Nausea Last Admin: 08/25/16 15:26 Dose: 25 mg Propofol (Diprivan 20 Ml) Confirm Administered Dose 400 mg .ROUTE .STK-MED ONE Stop: 08/25/16 09:50 Propofol (Diprivan 20 Ml) Confirm Administered Dose 200 mg .ROUTE .STK-MED ONE Stop: 08/25/16 10:57 Propofol (Diprivan 20 Ml) Confirm Administered Dose 200 mg .ROUTE .K-MED ONE Stop: 08/25/16 11:06 Tranexamic Acid (Cyklokapron) Confirm Administered Dose 4,000 mg .ROUTE .K- MED ONE Stop: 08/25/16 08:49 - My Orders Last 24 Hours: Active Orders 24 hr Category Date Time Status HEMOGLOBIN/HEMATOCRIT,HH [HEME] DAILY Lab 08/28/16 06:00 Ordered Celecoxib [CeleBREX] Med 08/26/16 09:00 Active 200 mg PO BID Famotidine [Pepcid] Med 08/26/16 09:00 Active 40 mg PO DAILY Ferrous Sulfate [Slow Fe] Med 08/26/16 09:00 Active 140 mg PO DAILY Multivitamins [Tab-A-Vika] Med 08/26/16 09:00 Active 1 tab PO DAILY Promethazine [Phenergan] Med 08/26/16 16:01 Active 25 mg PO Q6H PRN Medication Orders Acetaminophen (Tylenol Extra Strength) 1,000 mg PO Q6H [facility] Last Admin: 08/27/16 08:06 Dose: 1,000 mg Admin: 08/27/16 03:27 Dose: 1,000 mg Admin: 08/26/16 21:14 Dose: 1,000 mg Admin: 08/26/16 14:14 Dose: 1,000 mg Admin: 08/26/16 08:34 Dose: 1,000 mg Admin: 08/26/16 03:24 Dose: 1,000 mg Al Hydroxide/Mg Hydroxide (Mag-Al Plus) 30 ml PO Q4H PRN PRN Reason: indigestion Bisacodyl (Dulcolax) 10 mg RECTAL DAILY PRN PRN Reason: Constipation Celecoxib (Celebrex) 200 mg PO BID [facility] Last Admin: 08/27/16 08:06 Dose: 200 mg Admin: 08/26/16 21:14 Dose: 200 mg Admin: 08/26/16 08:34 Dose: 200 mg Diphenhydramine HCl (Benadryl) 25 mg PO Q4H PRN PRN Reason: ITCHING Docusate Sodium (Colace) 100 mg PO BID [facility] Last Admin: 08/27/16 08:06 Dose: 100 mg Admin: 08/26/16 21:15 Dose: 100 mg Admin: 08/26/16 08:34 Dose: 100 mg Admin: 08/25/16 20:46 Dose: 100 mg Famotidine (Pepcid) 40 mg PO DAILY [facility] Last Admin: 08/27/16 08:06 Dose: 40 mg Admin: 08/26/16 08:34 Dose: 40 mg Ferrous Sulfate (Slow Fe) 140 mg PO DAILY [facility] Last Admin: 08/27/16 08:07 Dose: 140 mg Admin: 08/26/16 08:57 Dose: 140 mg Lactated Ringer's (Ringers, Lactated) 1,000 mls @ 100 mls/hr IV ASDIRECTED [facility] Last Admin: 08/26/16 00:37 Dose: 100 mls/hr Infusion: 08/25/16 18:56 Dose: 100 mls/hr Admin: 08/25/16 08:56 Dose: 100 mls/hr Levothyroxine Sodium (Levothyroxine) 125 mcg PO ACBREAKFAST [facility] Last Admin: 08/27/16 06:44 Dose: 125 mcg Admin: 08/26/16 06:42 Dose: 125 mcg Lorazepam (Ativan) 1 mg PO BEDTIME [facility] Last Admin: 08/26/16 21:15 Dose: 1 mg Admin: 08/25/16 20:47 Dose: 1 mg Morphine Sulfate (Morphine) 1 - 3 mg IVPUSH Q3H PRN PRN Reason: Pain Last Admin: 08/27/16 03:54 Dose: 2 mg Admin: 08/26/16 14:54 Dose: 3 mg Admin: 08/25/16 14:40 Dose: 2 mg Multivitamins/Minerals/Vitamin C (Tab-A-Vika) 1 tab PO DAILY [facility] Last Admin: 08/27/16 08:06 Dose: 1 tab Admin: 08/26/16 08:33 Dose: 1 tab Ondansetron HCl (Zofran) 4 mg IVPUSH Q8H PRN PRN Reason: NAUSEA Last Admin: 08/27/16 03:28 Dose: 4 mg Admin: 08/26/16 12:03 Dose: 4 mg Admin: 08/25/16 20:39 Dose: 4 mg Oxycodone HCl (Oxycodone) 5 - 10 mg PO Q4H PRN PRN Reason: Pain Last Admin: 08/26/16 18:03 Dose: 10 mg Admin: 08/26/16 12:03 Dose: 10 mg Admin: 08/26/16 03:24 Dose: 10 mg Admin: 08/25/16 23:09 Dose: 10 mg Admin: 08/25/16 16:38 Dose: 10 mg Oxycodone HCl (Oxycontin) 20 mg PO Q12HR [facility] Last Admin: 08/27/16 08:07 Dose: 20 mg Admin: 08/26/16 21:14 Dose: 20 mg Admin: 08/26/16 08:35 Dose: 20 mg Admin: 08/25/16 20:46 Dose: 20 mg Promethazine HCl (Phenergan) 25 mg PO Q6H PRN PRN Reason: Nausea/Vomiting Rivaroxaban (Xarelto) 20 mg PO DAILY@0800 [facility] Last Admin: 08/27/16 08:07 Dose: 20 mg Admin: 08/26/16 08:34 Dose: 20 mg Scopolamine (Transderm-Scop) 1.5 mg TRDERM ONARRIVE [facility] Last Admin: 08/25/16 09:03 Dose: 1.5 mg Sodium Chloride (Saline Flush) 10 ml FLUSH ASDIRECTED PRN PRN Reason: Keep Vein Open Sodium Chloride (Saline Flush) 2.5 ml FLUSH ASDIRECTED PRN PRN Reason: Keep Vein Open - Plan Plan (Free Text/Narrative):: Pt seen and examined. Agree with above note. Patient sitting up in chair. Pain controlled. Still with occasional nausea which improves with medication. Dressing dry/intact. NVI. Will continue PT and current pain management. Add po Zofran for home. Plan to discharge today after PT if she does well. Patient agrees with plan.
[2016-08-27] MEDS: oxyCODONE 5 MG Tab PO PRN ×2 (12:14→16:24)
[2016-08-27 13:17] VITALS: BP 131/68
--- NOTE | 2016-08-27 16:08 | PCM.SN ---
- Free Text/Narrative Note: d/ch summary #[id number]
--- NOTE | 2016-08-28 06:02 | DISCH ---
DATE OF DISCHARGE: 08/27/2016 PRIMARY CARE PHYSICIAN: Keagan Gibson MD ADMITTING DIAGNOSIS: Degenerative joint disease, right knee, tricompartmental. OTHER MEDICAL DIAGNOSES: 1. Hypothyroidism. 2. Protein S deficiency. 3. 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 4. Anxiety. DISCHARGE DIAGNOSES: 1. Degenerative joint disease, right knee, tricompartmental. 2. Hypothyroidism. 3. Protein S deficiency. 4. 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 5. Anxiety. 6. Acute posthemorrhagic anemia. BRIEF HISTORY: Merari is a 56-year-old female, who has had progressive complaints of right knee pain. She has tried and failed conservative treatment. At that time, surgical treatment was recommended. She has previously undergone a left total knee arthroplasty and has done well following that. On August 25, 2016, the patient underwent a right total knee arthroplasty using patient-specific instrumentation done by Dr. Frances Roach. This was done under spinal anesthesia with sedation. Estimated blood loss was 50 mL. Tourniquet time was 50 minutes. There were no known complications. Upon the completion of the procedure, the patient was transferred to the PACU and subsequently to Med/Surg for postoperative care. HOSPITAL COURSE: Postoperatively, the patient did well. She received 2 doses of clindamycin postoperatively for a total of 24 hours of antibiotic coverage. Physical Therapy followed her through her hospital stay. Her home dose of Xarelto was resumed on postoperative day number 1 as DVT prophylaxis. Her vital signs have been stable. She has been afebrile. Her hemoglobin on the morning of August 27 was 11.8. At this time, the patient is doing well. Her pain is controlled with oral pain medications. Her nausea is controlled with Zofran. She is ambulating well with a wheeled walker. She is tolerating oral intake. She feels comfortable with discharge to home. DISCHARGE MEDICATIONS: 1. OxyContin 20 mg. 2. Oxycodone 5 mg. 3. Tylenol extra-strength 500 mg. 4. Colace 100 mg. 5. Zofran 4 mg. DISCHARGE INSTRUCTIONS: 1. Follow up in clinic 10-14 days from the date of procedure. This appointment has been made for the patient. 2. Outpatient physical therapy 2-3 times per week for 4-6 weeks. 3. TAO hose, on in the morning, off in the evening. 4. Polar Care to the right knee as needed. 5. No driving for six weeks. Status post right total knee arthroplasty. 6. She is to change her dressing on Wednesday August 31, 2016. She should place a new dressing and leave that in place until followup in clinic. For complete medication reconciliation and discharge instructions, please refer back to the patient's EHR. Should she have questions or concerns prior to followup, she has been advised to return to clinic or call. HANNAH MONTEZ /[id number] CAITLIN
--- NOTE | 2016-09-08 22:09 | OR ---
SURGEON: Frances Roach MD DATE OF PROCEDURE: 08/25/2016 ADDENDUM: Previous operative note had operative procedure site dictated in error. PREOPERATIVE DIAGNOSIS: Degenerative joint disease, right knee, tricompartmental. POSTOPERATIVE DIAGNOSIS: Degenerative joint disease, right knee, tricompartmental. PROCEDURE: Right total knee arthroplasty using patient-specific instrumentation. The original operative note was dictated using the wrong side. BRIEF HISTORY: The patient is a 56-year-old female who has had complaint of progressive right knee pain. She has previously undergone a left total knee arthroplasty and has done well. RODRIGO / TC /[id number]
== END 2016-08-27 16:40 | disposition home or self-care (01) | DRG 302 ==
LOC: MW.MS 07:48
PROVIDERS: ADMIT Orthopaedic Surgery; ATTEND Orthopaedic Surgery
PROC: 0SRD0J9 Replacement of Left Knee Joint with Synthetic Substitute, Cemented, Open Approach (ICD-10-PCS; principal; 2016-08-25)
DX: M17.11 Unilateral primary osteoarthritis, right knee (principal); D62 Acute posthemorrhagic anemia; E03.9 Hypothyroidism, unspecified; D68.59 Other primary thrombophilia; I82.509 Chronic embolism and thrombosis of unspecified deep veins of unspecified lower extremity; F41.9 Anxiety disorder, unspecified; M94.262 Chondromalacia, left knee
CPT/HCPCS: 01402; 36415; 73560-26-RT; 73560-RT; 85014; 85018; 86850; 86900; 86901; 88305; 88311; 97110-GP; 97116-GP; 97162-GP; 97530-GP; A9270-GY; C1713; C1776; J0171; J0735; J1885; J2250; J2270; J2405; J2550; J2704; J2795; J3010; J7030; J7050; J7120